=== PATIENT | female | born 1995 | race American Indian/Alaskan Native ===

== ENCOUNTER 2019-11-06 21:02 | Emergency (ER) | payer SELFPAY ==
[2019-11-06 21:16] VITALS: BP 130/86
--- NOTE | 2019-11-06 21:20 | Emergency Department Report ---
Blank Doc - Documentation Documentation: 23-year-old female that presents with chest pain. Denies any SOB. This initial assessment/diagnostic orders/clinical plan/treatment(s) is/are subject to change based on patient's health status, clinical progression and re- assessment by fellow clinical providers in the ED. Further treatment and workup at subsequent clinical providers discretion. Patient/guardians urged not to elope from the ED as their condition may be serious if not clinically assessed and managed. Initial orders include: 1- Patient sent to [facility] for further evaluation and treatment 2- CXR 3- EKG
[2019-11-06 22:38] LABS: Bacteria,Urine 1+ /HPF (Negative); Bilirubin,Urine NEG (Negative); Blood,Urine NEG (Negative); Color,Urine Straw (Yellow); Protein,Urine <15 mg/dL mg/dL (Negative); Urobilinogen,Urine < 2.0 mg/dL (<2.0)
[2019-11-06 22:39] LABS: HCG Qualitative,Urine Negative (Negative)
--- NOTE | 2019-11-06 23:13 | XRay Report ---
CHEST 2 VIEWS INDICATION / CLINICAL INFORMATION: Mid chest pain radiating to the back for 2 days. COMPARISON: None available. FINDINGS: SUPPORT DEVICES: None. HEART / MEDIASTINUM: No significant abnormality. LUNGS / PLEURA: No significant pulmonary or pleural abnormality. No pneumothorax. ADDITIONAL FINDINGS: Small right cervical rib. IMPRESSION: 1. No acute findings. Signer Name: Clinton Cummings MD Signed: 11/06/2019 11:08 PM Workstation Name: [id number]
--- NOTE | 2019-11-06 23:39 | Emergency Department Report ---
ED General Adult HPI - General Chief complaint: Chest Pain Stated complaint: CP Time Seen by Provider: 11/06/19 21:10 Source: patient Mode of arrival: Ambulatory Limitations: No Limitations - History of Present Illness Initial comments: This is a 23-year-old female with no prior medical history who presents the ED complaining of midsternal chest pain that radiates to the back and goes up her throat for the past 2 days. Patient denies any prior medical history such as asthma. Patient states that in the past 2 days she has been drinking a lot of lemonade stuff to help calm the feeling but symptoms got worse. So she presents here today. She denies shortness of breath, coughing, fever, nausea vomiting abdominal pain, shortness of breath - Related Data Previous Rx's Medication Instructions Recorded Last Taken Type Famotidine [Pepcid] 20 mg PO BID #40 tablet 11/06/19 Unknown Rx ED Review of Systems ROS: Stated complaint: CP Other details as noted in HPI Comment: All other systems reviewed and negative ED Past Medical Hx - Social History Smoking Status: Never Smoker Substance Use Type: None - Medications Home Medications: Home Medications Medication Instructions Recorded Confirmed Last Taken Type Famotidine [Pepcid] 20 mg PO BID #40 tablet 11/06/19 Unknown Rx ED Physical Exam - General Limitations: No Limitations General appearance: alert, in no apparent distress - Head Head exam: Present: atraumatic, normocephalic - Eye Eye exam: Present: normal appearance - ENT ENT exam: Present: mucous membranes moist - Neck Neck exam: Present: normal inspection - Respiratory Respiratory exam: Present: normal lung sounds bilaterally. Absent: respiratory distress - Cardiovascular Cardiovascular Exam: Present: regular rate, normal rhythm. Absent: systolic murmur, diastolic murmur, rubs, gallop - GI/Abdominal GI/Abdominal exam: Present: soft, normal bowel sounds - Extremities Exam Extremities exam: Present: normal inspection - Back Exam Back exam: Present: normal inspection - Neurological Exam Neurological exam: Present: alert, oriented X3 - Psychiatric Psychiatric exam: Present: normal affect, normal mood - Skin Skin exam: Present: warm, dry, intact, normal color. Absent: rash ED Course Vital Signs 11/06/19 21:13 Temperature 99.0 F Pulse Rate 73 Respiratory 16 Rate Blood Pressure 130/86 O2 Sat by Pulse 100 Oximetry ED Medical Decision Making - EKG Data EKG shows normal: sinus rhythm Rate: normal - EKG Data Interpretation: normal EKG - Radiology Data Radiology results: report reviewed, image reviewed XRay Report Signed Patient: JUAN C ASKEW MR#: [id number] 58 : 1995 Acct:[id number] Age/Sex: 23 / F ADM Date: 11/06/19 Loc: ED Attending Dr: Ordering Physician: CRYSTAL SCHULER NP Date of Service: 11/06/19 Procedure(s): XR chest routine 2V Accession Number(s): [id number] cc: CRYSTAL SCHULER NP Fluoro Time In Minutes: CHEST 2 VIEWS INDICATION / CLINICAL INFORMATION: Mid chest pain radiating to the back for 2 days. COMPARISON: None available. FINDINGS: SUPPORT DEVICES: None. HEART / MEDIASTINUM: No significant abnormality. LUNGS / PLEURA: No significant pulmonary or pleural abnormality. No pneumothorax. ADDITIONAL FINDINGS: Small right cervical rib. IMPRESSION: 1. No acute findings. Signer Name: Clinton Cummings MD Signed: 11/06/2019 11:08 PM Workstation Name: [id number] Transcribed By: DT Dictated By: Reid Cummings MD Electronically Authenticated By: Reid Cummings MD Signed Date/Time: 11/06/19 6657 - Medical Decision Making This 23-year-old female prep presents with mid chest pain most likely secondary to acid reflux. Chest x-ray was negative in the ED. EKG was negative and normal Discussed with patient to stop eating acid rich foods such as lemon, tomatoes Discussed follow-up with load dispatcher as well. Vital signs are normal patient is in no acute distress. Critical care attestation.: If time is entered above; I have spent that time in minutes in the direct care of this critically ill patient, excluding procedure time. ED Disposition Clinical Impression: Chest pain due to gastrointestinal reflux disease Disposition: DC-01 TO HOME OR SELFCARE Is pt being admited?: No Does the pt Need Aspirin: No Condition: Stable Instructions: Chest Pain (ED), Diet for Ulcers and Gastritis (ED), Gastroesophageal Reflux Disease (ED) Additional Instructions: Make sure to follow up with the primary care physician as discussed. Take all your medications as you've been prescribed. If you have any worsening symptoms or develop new symptoms please return to ED immediately. Prescriptions: Famotidine [Pepcid] 20 mg PO BID #40 tablet Referrals: PRIMARY CARE, [Primary Care Provider] - 3-5 Days [facility] [Provider Group] - 3-5 Days [facility] [Provider Group] - 3-5 Days Forms: Accompanied Note, Work/School Release Form(ED) Time of Disposition: 23:49
== END 2019-11-06 23:55 | disposition home or self-care (01) ==
LOC: ED 21:02
DX: K21.9 Gastro-esophageal reflux disease without esophagitis (principal); R07.9 Chest pain, unspecified
CPT/HCPCS: 71046; 81001; 81025; 93005; 93010